=== PATIENT | male | born 2000 | race Caucasian/White ===

== ENCOUNTER 2022-02-10 12:04 | Emergency (ER) | payer OTHER | END 2022-02-10 13:30 | disposition home or self-care (01) | LOC: ED 12:04 | DX: S30.0XXA Contusion of lower back and pelvis, initial encounter (principal); V80.010A Animal-rider injured by fall from or being thrown from horse in noncollision accident, initial encounter; Z88.0 Allergy status to penicillin | CPT/HCPCS: 36415; 74177; 80053; 82553; 83605; 83690; 85025; 86850; 86900; 86901; 99284-25; G0480; Q9967 ==